=== PATIENT | female | born 1965 | race Two or more races ===

== ENCOUNTER 2024-11-14 16:11 | Inpatient (IN) | payer MEDICAID ==
[~2024-11-14] VITALS: Ht 177.8 cm; Wt 71.5 kg
--- NOTE | 2024-11-14 16:30 | ED.PDOC ---
History of Present Illness HPI Comments 59 year old female presents to the ED via EMS with a chief complaint of generalized weakness onset 1 day. Per EMS, patient was at an urgent care, was told hemoglobin level was 5, 911 was called. Patient is currently experiencing generalized weakness, abdominal pain radiating to back. She was discharged from [facility] 3 days ago with a diagnosis of GI bleed, states she is still experiencing dark stool. PMHx HTN. Denies chest pain, dizziness, shortness of breath, nausea, vomiting, diarrhea, constipation, dysuria, hematuria. No other symptoms or modifying factors present at this time. 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 History Family History Family History: Reviewed,noncontributory to illness, No family hx of Cancer, No family hx of DM, No family hx of Heart karan, No family hx of HTN, No family hx ofKidney karan, No family hx of Liver karan, No family hx of Lung karan, No family hx of Stroke Social History Smoker: Cigarettes Alcohol: Denies ETOH Use Drugs: Denies Drug Use Lives In: Home Constitutional: reports: weakness; denies: chills, diaphoresis, fatigue, fever, malaise, sweats, others EENTM: denies: blurred vision, double vision, ear bleeding, ear discharge, ear drainage, ear pain, ear ringing, eye pain, eye redness, hearing loss, mouth pain, mouth swelling, nasal discharge, nose bleeding, nose congestion, nose pain, photophobia, tearing, throat pain, throat swelling, voice changes, others Respiratory: denies: cough, hemoptysis, orthopnea, SOB at rest, shortness of breath, SOB with excertion, stridor, wheezing, others Cardiovascular: denies: chest pain, dizzy spells, diaphoresis, Dyspnea on exertion, edema, irregular heart beat, left arm pain, lightheadedness, palpitations, PND, syncope, others Gastrointestinal: reports: abdominal pain; denies: abdomen distended, blood streaked bowels, constipated, diarrhea, dysphagia, difficulty swallowing, hematemesis, melena, nausea, poor appetite, poor fluid intake, rectal bleeding, rectal pain, vomiting, others Genitourinary: denies: abnormal vagina bleeding, burning, dyspareunia, dysuria, flank pain, frequency, hematuria, incontinence, pain, , vagina discharge, urgency, others Neurological: reports: weakness; denies: dizziness, fainting, headache, left sided numbness, left sided weakness, numbness, paresthesia, pre-existing deficit, right sided numbness, right sided weakness, seizure, speech problems, tingling, tremors, others Musculoskeletal: reports: back pain; denies: gout, joint pain, joint swelling, muscle pain, muscle stiffness, neck pain, others Integumetry: denies: bruises, change in color, change in hair/nails, dryness, laceration, lesions, lumps, rash, wounds, others Allergic/Immunocompromised: denies: Difficulty Healing, Frequent Infections, Hives, Itching, others Hematologic/Lymphatic: denies: anemia, blood clots, easy bleeding, easy bruising, swollen glands, others Endocrine: denies: excessive hunger, excessive sweating, excessive thirst, excessive urination, flushing, intolerance to cold, intolerance to heat, unexplained weight gain, unexplained weight loss, others Psychiatric: denies: anxiety, bipolar disorder, depression, hopeless, panic disorder, schizophrenia, sleepless, suicidal, others All Other Systems: Reviewed and Negative Physical Exam General Appearance: Moderate Distress, Normal HEENT: Normal ENT Inspection, Pharynx Normal, TMs Normal Neck: Full Range of Motion, Non-Tender, Normal, Normal Inspection Respiratory: Chest Non-Tender, Lungs Clear, No Accessory Muscle Use, No Respiratory Distress, Normal Breath Sounds Cardiovascular: No Edema, No JVD, No Murmur, No Gallop, Normal Peripheral Pulses, Tachycardia Breast Exam: Deferred Gastrointestinal: Diffuse, No Organomegaly, No Pulsatile Mass, Normal Bowel Sounds, Soft Genitalia: Deferred Pelvic: Deferred Rectal: Deferred Extremities: No calf tenderness, Normal capillary refill, Normal inspection, Normal range of motion, Non-tender, No pedal edema Musculoskeletal : Apperance: Normal Neurologic: Alert, supervisor wrapping room II-XII nml as Tested, No Motor Deficits, Normal Affect, Normal Mood, No Sensory Deficits Cerebellar Function: NOT DONE Reflexes: NOT DONE Skin: Dry, Normal Color, Warm Peripheral Pulses: 3+ Radial (R), 3+ Radial (L) Lymphatic: No Adenopathy Was a procedure done? Was a procedure done?: No EKG EKG : Pulse Rate (adult): 111 Cardiac Rhythm: ST Differential Dx Considerations may include: Colitis Electrolyte imbalance X-Ray, Labs, Meds, VS Vital Signs Date Time Temp Pulse Resp B/P (MAP) Pulse Ox O2 Delivery O2 Flow Rate FiO2 11/14/24 17:31 99.0 109 26 141/82 (101) 98 99.0 11/14/24 17:31 109 26 98 Room Air* 0 21 11/14/24 16:32 111 11/14/24 16:25 111 11/14/24 16:22 98.3 118 16 145/91 98 98.3 Current Medications Medications (Trade) Dose Ordered Sig/Ami Route Start Time Stop Time Status Last Admin Sodium Chloride 1,000 ml @ 1,000 mls/hr Q1H ONCE IV 11/14/24 16:30 11/14/24 17:29 DC 11/14/24 17:33 Patient alert. Complaining of abdominal pain. Vitals stable. Answering questions. Establish intravenous access. Was given fluids. Chronic condition. Was given Rocephin. Was given Flagyl. Was given morphine. Was given Zofran. Explained to the patient. Continue to monitor. Time of 1ST Reevaluation: 16:45 Reevaluation 1ST: Unchanged Patient Education/Counseling: Diagnosis, Treatment, Prognosis Family Education/Counseling: No Family Present SEPSIS Sepsis Screen Physician Orders Complete Blood Count (11/14/24 16:26) Urinalysis (11/14/24 16:26) Basic Metabolic Panel (11/14/24 16:26) Ct Ab Pel Wo Con-No Oral Or Iv (11/14/24 16:32) Electrocardigram (11/14/24 16:36) Vital Signs Date Time Temp Pulse Resp B/P (MAP) Pulse Ox O2 Delivery O2 Flow Rate FiO2 11/14/24 17:31 99.0 109 26 141/82 (101) 98 99.0 11/14/24 17:31 109 26 98 Room Air* 0 21 11/14/24 16:32 111 11/14/24 16:25 111 11/14/24 16:22 98.3 118 16 145/91 98 98.3 Medications Medications Dose Ordered Sig/Ami Route Start Time Stop Time Status Last Admin Dose Admin Sodium Chloride 1,000 ml @ 1,000 mls/hr Q1H ONCE IV 11/14/24 16:30 11/14/24 17:29 DC 11/14/24 17:33 Departure 1 Departure Time of Disposition: 17:37 Impression: Primary Impression: Nonspecific colitis Disposition: ADMITTED INPATIENT Admit to: Med Surg Condition: Guarded Critical Care Note Critical Care Time?: No Stability Stability form required: No Heart Score Heart Score: Heart Score Response (Comments) Value History N/A 0 EKG N/A 0 Age N/A 0 Risk Factors N/A 0 Troponin N/A 0 Total 0 I personally scribed for GEOFF IBARRA MD ([email or web address]) on 11/14/24 at 16:30. Electronically submitted by Lupe Christy ([email or web address]). I personally scribed for GEOFF IBARRA MD ([email or web address]) on 11/14/24 at 16:32. Electronically submitted by Lupe Christy ([email or web address]). GEOFF IBARRA MD Nov 14, 2024 16:30
--- NOTE | 2024-11-14 17:24 | DVH ---
Exam: CT CT AB PEL WO CON-NO ORAL OR IV History: gibleed Comparison Study: None TECHNIQUE: Multidetector CT of the abdomen and pelvis without IV contrast. Axial, coronal and sagitta l multiplanar reformats were obtained from the axial data set by the technologist. Radiation Dose Information: CT Dose: CTDI volume is 14.91 mGy. Dose-length product is 676.39 mGy*cm FINDINGS: The lung bases are clear. Partially visualized heart is normal in size. Trace pericardial effusion. Hepatomegaly. Otherwise, liver, spleen, pancreas and adrenal glands unremarkable. Moderate to signif icant distention of the gallbladder with no evidence of wall thickening or cholelithiasis. 0.6 cm nonobstructing right renal lower pole calculus. Otherwise, kidneys, and ureters unremarkable. Urinary bladder is mildly distended and demonstrates mild wall thickening. Uterus and adnexa are unre markable. Mild gaseous distention of the distal esophagus. Stomach is fluid-filled and mildly distended. Mild wall thickening of the distal stomach Small bowel loops are unremarkable. Large amount of fecal mater ial within the ascending colon and transverse colon with small amount of fecal material within the re mainder of the colon. No evidence of intraperitoneal free air. Diffuse mesenteric edema. No evidence of aortic aneurysm. Mild atherosclerotic calcification of the aorta and bilateral iliacs . No significant lymphadenopathy. Mild body wall edema. Grade 1 anterolisthesis of L4 on L5. Multilevel moderate to severe degenerative changes of the lumbar spine. IMPRESSION: Limited noncontrast imaging. Mild wall thickening of the distal stomach which may be due to inadequate distention with mild gastri tis not excluded Mild mesenteric edema. Nonobstructing right renal calculus. Large amount of fecal material within the ascending and transverse colons with small amount of fecal material within the remainder of the colon. Mild body wall edema. Moderate to significant distention of the gallbladder without evidence of wall thickening or cholelit hiasis. Right upper quadrant ultrasound may be considered for further evaluation.
[2024-11-14 17:31] VITALS: PULSE 109; RESP 26; O2SAT 98
[2024-11-14] MEDS: SODIUM CHLORIDE 0.9% 1,000 ML IV ONE (17:33)
[2024-11-14] MEDS: ONDANSETRON HCL 4 MG/2 ML VIAL IV ONE (17:43)
[2024-11-14] MEDS: MORPHINE SULFATE 4 MG/ML SYR/VIAL IV ONE (17:44)
[2024-11-14 17:53] LABS: Nucleated Red Blood Cells % 0.4 %
[2024-11-14 17:55] LABS: Hematocrit 19.5 % (36.0-46.0); Mean Corpuscular Hemoglobin 28.3 pg (28.0-32.0); Mean Corpuscular Volume 86.2 fL (80.0-100.0)
[2024-11-14 18:00] LABS: Anion Gap 6 (5-15); Calcium 8.8 mg/dL (8.7-10.4); Carbon Dioxide 22 mmol/L (20-31); Potassium 3.7 mmol/L (3.5-5.1); Sodium 140 mmol/L (136-145)
[2024-11-14 18:06] LABS: BUN/Creatinine Ratio 19.8 (10.0-20.0); Blood Urea Nitrogen 19 mg/dL (9-23)
[2024-11-14 18:08] LABS: Chloride 112 mmol/L (98-107); Glucose 116 mg/dL (74-106)
--- NOTE | 2024-11-14 18:13 | DVHHP2 ---
Admitting Diagnosis: low hgb History of Present Illness 59 year old female presents to the ED via EMS with a chief complaint of generalized weakness onset 1 day. Per EMS, patient was at an urgent care, was told hemoglobin level was 5, 911 was called. Patient is currently experiencing generalized weakness, abdominal pain radiating to back. She was discharged from [facility] 3 days ago with a diagnosis of GI bleed, states she is still experiencing dark stool. PMHx HTN. Denies chest pain, dizziness, shortness of breath, nausea, vomiting, diarrhea, constipation, dysuria, hematuria. No other symptoms or modifying factors present at this time. 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 History Family History Family History: Reviewed,noncontributory to illness, No family hx of Cancer, No family hx of DM, No family hx of Heart karan, No family hx of HTN, No family hx ofKidney karan, No family hx of Liver karan, No family hx of Lung karan, No family hx of Stroke Social History Smoker: Cigarettes Alcohol: Denies ETOH Use Drugs: Denies Drug Use Lives In: Home Allergies: Coded Allergies: NO KNOWN ALLERGIES (Unverified , 11/14/24) Vital Signs Vital Signs Date Time Temp Pulse Resp B/P (MAP) Pulse Ox O2 Delivery O2 Flow Rate FiO2 11/14/24 18:29 100 18 112/64 11/14/24 17:31 99.0 98 99.0 11/14/24 17:31 Room Air* 0 21 Physical Exam General-59 years old woman, well nourished well developed. No apparent distress HEENT-atraumatic normocephalic Heart-sinus tachycardic Lungs clear to auscultate bilaterally Abdomen soft nontender nondistended Musculoskeletal-no edema cyanosis Neuro-AO x3, no focal deficits SEPSIS Sepsis Screen Date sepsis recognized/suspect: Nov 14, 2024 Time Sepsis recognized/suspect: 1738 Recent Procedure: No On Antibiotic Therapy: No Respiratory Rate >20: No Heart Rate >90: Yes Temp<36 C (96.8 F) or >38.3 C: No SBP <90 or MAP <65 mmHG: No New Acute Mental Status Change: No Is the patient on CPAP, BIPAP,: No Physician Orders Urinalysis (11/14/24 16:26) Ct Ab Pel Wo Con-No Oral Or Iv (11/14/24 16:32) Electrocardigram (11/14/24 16:36) Packedcell-Noactive Bleeding (11/14/24 19:42) Vital Signs .PER UNIT PROTOCOL (11/14/24 19:42) Administer Blood Products UD (11/14/24 19:42) * Gi Dvh Chipping Machine Operator (11/14/24 19:45) Complete Blood Count (11/15/24 05:00) Complete Blood Count (11/16/24 05:00) Complete Blood Count (11/17/24 05:00) Complete Blood Count (11/18/24 05:00) Complete Blood Count (11/19/24 05:00) Comprehensive Metabolic Panel (11/15/24 05:00) Comprehensive Metabolic Panel (11/16/24 05:00) Comprehensive Metabolic Panel (11/17/24 05:00) Comprehensive Metabolic Panel (11/18/24 05:00) Comprehensive Metabolic Panel (11/19/24 05:00) Admit (11/14/24 19:45) Code Status (11/14/24 19:45) Review Orders With Adm.Md (11/14/24 19:45) Encourage Activity As Tolerate (11/14/24 19:45) Regular Diet (11/15/24 Breakfast) Sodium Chloride Lock (Saline Lock Ns) (11/14/24 22:00) Docusate Sodium Capsule (Colace Capsule) (11/14/24 19:45) Acetaminophen Tablet (Tylenol Tablet) (11/14/24 19:45) Notify Md Of Changes From Base (11/14/24 19:45) Advance Directive (11/14/24 19:45) Patient Condition (11/14/24 19:45) Allergies (11/14/24 19:45) Hydrocodone-Acet 5/325mg Tab ([place] 5/32 (11/14/24 19:45) Ondansetron Hcl (Zofran) (11/14/24 19:45) Pantoprazole (Protonix) (11/14/24 22:00) Vital Signs Date Time Temp Pulse Resp B/P (MAP) Pulse Ox O2 Delivery O2 Flow Rate FiO2 11/14/24 18:29 100 18 112/64 11/14/24 17:44 103 16 141/82 11/14/24 17:31 99.0 109 26 141/82 (101) 98 99.0 11/14/24 17:31 109 26 98 Room Air* 0 21 11/14/24 16:32 111 11/14/24 16:25 111 11/14/24 16:22 98.3 118 16 145/91 98 98.3 Laboratory Tests Test 11/14/24 17:31 White Blood Count 9.7 10^3/uL (4.4-10.8) Medications Medications Dose Ordered Sig/Ami Route Start Time Stop Time Status Last Admin Dose Admin Morphine Sulfate 4 mg ONCE ONCE IV 11/14/24 17:45 11/14/24 17:46 DC 11/14/24 17:44 Ondansetron HCl 4 mg ONCE ONCE IV 11/14/24 17:45 11/14/24 17:46 DC 11/14/24 17:43 Sodium Chloride 1,000 ml @ 1,000 mls/hr Q1H ONCE IV 11/14/24 16:30 11/14/24 17:29 DC 11/14/24 17:33 Results Labs Test 11/14/24 17:31 Range/Units White Blood Count 9.7 4.4-10.8 10^3/uL Red Blood Count 2.26 L 4.0-5.20 10^6/uL Hemoglobin 6.4 *L 12.2-16.2 g/dL Hematocrit 19.5 L 36.0-46.0 % Mean Corpuscular Volume 86.2 80.0-100.0 fL Mean Corpuscular Hemoglobin 28.3 28.0-32.0 pg Mean Corpuscular Hemoglobin Concent 32.9 32.0-36.0 g/dL Red Cell Distribution Width 14.8 H 11.8-14.3 % Platelet Count 487 H 140-450 10^3/uL Mean Platelet Volume 8.1 6.9-10.8 fL Neutrophils (%) (Auto) 78.4 37.0-80.0 % Lymphocytes (%) (Auto) 12.5 10.0-50.0 % Monocytes (%) (Auto) 7.6 0.0-12.0 % Eosinophils (%) (Auto) 0.4 0.0-7.0 % Basophils (%) (Auto) 1.1 0.0-2.0 % Neutrophils # (Auto) 7.6 1.6-8.6 10 ^3/uL Lymphocytes # (Auto) 1.2 0.4-5.4 10 ^3/uL Monocytes # (Auto) 0.7 0-1.3 10 ^3/uL Eosinophils # (Auto) 0 0-0.8 10 ^3/uL Basophils # (Auto) 0.1 0-0.2 10 ^3/uL Nucleated Red Blood Cells 0.4 % Sodium Level 140 136-145 mmol/L Potassium Level 3.7 3.5-5.1 mmol/L Chloride Level 112 H 98-107 mmol/L Carbon Dioxide Level 22 20-31 mmol/L Anion Gap 6 5-15 Blood Urea Nitrogen 19 9-23 mg/dL Creatinine 0.96 0.550-1.02 mg/dL Glomerular Filtration Rate Calc 67 >90 mL/min BUN/Creatinine Ratio 19.8 10.0-20.0 Serum Glucose 116 H 74-106 mg/dL Calcium Level 8.8 8.7-10.4 mg/dL Primary Diagnosis Severe anemia requiring blood transfusion Melena likely due to upper GI bleed Plan Melena Hemoglobin less than seven denies taking iron suppl Transfuse 1 unit PRBC PPI for GI prophylaxis Regular diet NPO after midnight IV fluids DVT gi on-call GI bleed Full code SCD for DVT prophylaxis PPI for GI prophylaxis Plan discussed with: Patient Date of Service: Nov 14, 2024 Billing Provider: HENRIQUE PAUL MD Common Visit Codes: [id number] INP/OBS CARE (HIGH) HERNIQUE PAUL MD Nov 14, 2024 18:13
[2024-11-14 18:22] LABS: Hemoglobin 6.4 g/dL (12.2-16.2)
[2024-11-14 19:45] VITALS: RESP 20; O2SAT 97
[2024-11-14] MEDS ORDERED: DOCUSATE SOD 100 MG CAP PO PRN (19:45)
[2024-11-14] MEDS: MORPHINE SULFATE INJ 2 MG/ml SYRG ONE (20:37)
[2024-11-14 21:30] VITALS: BP 133/74; PULSE 95; RESP 22; TEMP 99.1
[2024-11-14 21:55] VITALS: BP 122/65; PULSE 92; RESP 17; TEMP 99.1
[2024-11-14] MEDS: SODIUM CHLOR 0.9% PF (SALINE LOCK) 10ML VIAL/SYR IV SCH (22:00)
[2024-11-14] MEDS: PANTOPRAZOLE 40 MG/10 ML VIAL INJ IV SCH (22:00)
[2024-11-14] MEDS: HYDROcodone-ACET 5/325MG TAB PO PRN (23:36)
[2024-11-14] MEDS: ACETAMINOPHEN 325 MG TAB PO PRN (23:36)
[2024-11-15] VITALS (10 sets, daily range): BP systolic 109–151; BP diastolic 66–91; PULSE 71–109; RESP 18–24; TEMP 97.9–99.5; O2SAT 99–100
[2024-11-15 01:32] LABS: Urine Protein, UAD Negative (Negative)
[2024-11-15] MEDS: ONDANSETRON HCL 4 MG/2 ML VIAL IV PRN (04:14)
[2024-11-15] MEDS: MORPHINE SULFATE INJ 2 MG/ml SYRG IV PRN (04:29)
[2024-11-15] MEDS ORDERED: DOCU-94 PO (05:15)
[2024-11-15] MEDS ORDERED: ALBUAER3 IN (05:15)
[2024-11-15] MEDS ORDERED: ACET-1304 PO (05:15)
[2024-11-15] MEDS ORDERED: METO25TA93 PO (05:15)
[2024-11-15] MEDS ORDERED: ENAL1TAB46 PO (05:15)
[2024-11-15] MEDS ORDERED: CETI-120 PO (05:15)
[2024-11-15] MEDS ORDERED: ATOR20TA50 PO (05:15)
[2024-11-15] MEDS ORDERED: DIPH25CA66 PO (05:15)
[2024-11-15] MEDS ORDERED: IBU600T PO (05:16)
[2024-11-15] MEDS: KETOROLAC TROMETH 30 MG/ML 1ML VIAL IV ONE (05:36)
[2024-11-15 11:04] LABS: Alanine Aminotransferase 19 U/L (7-40); Albumin 4.0 g/dL (3.2-4.8); Anion Gap 8 (5-15); BUN/Creatinine Ratio 17.9 (10.0-20.0); Bilirubin, Total 0.4 mg/dL (0.2-1.0); Blood Urea Nitrogen 14 mg/dL (9-23); Glucose 98 mg/dL (74-106); Potassium 4.4 mmol/L (3.5-5.1); Sodium 142 mmol/L (136-145); Total Protein 5.9 g/dL (5.7-8.2)
[2024-11-15 11:06] LABS: Alkaline Phosphatase 36 U/L (46-116); Calcium 8.6 mg/dL (8.7-10.4); Carbon Dioxide 19 mmol/L (20-31); Chloride 115 mmol/L (98-107)
[2024-11-15] MEDS: POLYETHYLENE GLYCOL 17 GM PWDR PO ONE (11:32)
[2024-11-15] MEDS: HYDROmorphone HCL 2 MG/ML VL/or syr IV ONE (11:33)
[2024-11-15 12:03] LABS: Hematocrit 31.9 % (36.0-46.0); Hemoglobin 9.7 g/dL (12.2-16.2); Mean Corpuscular Hemoglobin 28.9 pg (28.0-32.0); Mean Corpuscular Volume 95.5 fL (80.0-100.0)
--- NOTE | 2024-11-15 12:13 | DVHPN2 ---
Reviewed: Care Plan, H&P, Labs, Medications, Previous Orders, Radiology Changes from previous H/P or p: No Changes Objective Vitals Vital Signs Date Time Temp Pulse Resp B/P (MAP) Pulse Ox O2 Delivery O2 Flow Rate FiO2 11/15/24 11:33 61 17 106/65 11/15/24 09:00 98.6 100 98.6 11/15/24 08:00 Room Air* 0 21 Intake/Output Intake and Output 11/15/24 07:00 Intake Total 1000 ml Balance 1000 ml Intake IV Total 1000 ml Medications Current Medications Medications Dose Ordered Sig/Ami Route Start Time Stop Time Status Last Admin Dose Admin Sodium Chloride 10 ml Q8HR IV 11/14/24 22:00 11/15/24 05:38 10 ML Docusate Sodium 100 mg BIDPRN PRN PO 11/14/24 19:45 Acetaminophen 650 mg Q6HP PRN PO 11/14/24 19:45 11/14/24 23:36 650 MG Acetaminophen/ Hydrocodone Bitart 1 tab Q4HP PRN PO 11/14/24 19:45 11/15/24 03:36 1 TAB Ondansetron HCl 4 mg Q4HP PRN IV 11/14/24 19:45 11/15/24 04:14 4 MG Pantoprazole Sodium 40 mg BID IV 11/14/24 22:00 11/15/24 09:23 40 MG Morphine Sulfate 2 mg Q4HPRN PRN IV 11/14/24 20:30 11/15/24 08:17 2 MG Laboratory Results Laboratory Tests 11/15/24 10:25 Chemistry Test 11/14/24 17:31 11/15/24 10:25 Calcium Level 8.8 mg/dL (8.7-10.4) 8.6 mg/dL (8.7-10.4) L Albumin 4.0 g/dL (3.2-4.8) Total Protein 5.9 g/dL (5.7-8.2) LFT Test 11/15/24 10:25 Alanine Aminotransferase (ALT) 19 U/L (7-40) Alkaline Phosphatase 36 U/L (46-116) L Aspartate Amino Transferase (AST) 30 U/L (13-40) Total Bilirubin 0.4 mg/dL (0.2-1.0) Urinalysis Test 11/15/24 00:00 Urine Color Yellow (Yellow) Urine Clarity Clear (Clear) Urine pH 5.5 (5.0-9.0) Urine Specific [place] 1.026 (1.001-1.035) Urine Protein Negative (Negative) Urine Ketones Negative (Negative) Urine Blood Negative /uL (Negative) Urine Nitrite Negative (Negative) Urine Bilirubin Negative (Negative) Urine Urobilinogen Normal mg/dL (Negative) Urine Leukocyte Esterase Negative /uL (Negative) Urine Glucose Normal mg/dL (Normal) Labs and/or images reviewed: Labs reviewed by me, Image(s) reviewed by me Assessment/Plan Assessment/Plan Acute generalized weakness secondary to severe anemia Acute symptomatic anemia hemoglobin 6.1 improved to 9.7 after 1 unit RBC transfusion consult for GI Dr. Deya Anderson Hypertension Time 45 minutes Plan discussed with: Patient Date of Service: Nov 15, 2024 Billing Provider: DEN VALE MD Common Visit Codes: [id number] INP/OBS CARE(HIGH) DEN VALE MD Nov 15, 2024 12:13
--- NOTE | 2024-11-15 13:02 | DVHINCON2 ---
Date of service: Nov 15, 2024 Referring Physician Mati Vargas Reason for Consultation Anemia and abdominal pain History of Present Illness 59 year old female presents to the ED via EMS with a chief complaint of generalized weakness onset 1 day. Per EMS, patient was at an urgent care, was told hemoglobin level was 5, 911 was called. Patient is currently experiencing generalized weakness, abdominal pain radiating to back. She was [place] [facility] [place] with a diagnosis of GI bleed, states she is still experiencing dark stool. PMHx HTN. Denies chest pain, dizziness, shortness of breath, nausea, vomiting, diarrhea, constipation, dysuria, hematuria. No other symptoms or modifying factors present at this time. Patient was seen at bedside moaning and groaning because of chronic pain issues. She also has not had a bowel movement for 2-3 days. He believes the patient may have had previous pain medicine seeking behavior She denied any recent endoscopy or colonoscopy. Patient stated she had these done about five years ago at the [facility] On admission her hemoglobin was 6.4, after 1 unit PRBC repeat hemoglobin is at 9.1. There was no active GI bleeding reported today Past Medical History PAST MEDICAL HISTORY: HTN Past Surgical History Surgical History: Family History: Cardiovascular disease G8 MOTHER (HEART ATTACK), Allergies: Coded Allergies: NO KNOWN ALLERGIES (Unverified , 11/14/24) Home Meds Reported Medications Ibuprofen Micronized (MOTRIN TABLET) 600 Mg Tb, 600 MG PO BID, #40 TAB *Black box warning-NSAIDS can increase risk of NV & hypertension, GI irritation, ulceration, bleed, perferation. Do not use post cardiac surgery. Use short duration/lowest effective dose. 11/15/24 Acetaminophen (Tylenol Extra Strength) 500 Mg Tab, 500 MG PO, TAB 11/15/24 Cetirizine HCl (Cetirizine Hydrochloride) 10 Mg Tab, 10 MG PO 3XD, TAB 11/15/24 Diphenhydramine Hcl (Benadryl Allergy) 25 Mg Cap, 1 CAP PO QPM, #30 CAP 1 Refill 11/15/24 Albuterol Sulfate (VENTOLIN MDI) 90 Mcg Ih, 90 MCG IN, INH 11/15/24 Atorvastatin Calcium (ATORVASTATIN CALCIUM) 20 Mg Tab, 1 TAB PO DAILY, #30 TAB 5 Refills 11/15/24 Docusate Sodium (Colace) 100 Mg Cap, 1 CAP PO TID, #30 CAP 11/15/24 Metoprolol Succinate (Metoprolol Succinate Er) 25 Mg Tab, 1 TAB PO DAILY, #30 TAB 5 Refills 11/15/24 Enalapril Maleate (VASOTEC TABLET) 10 Mg Tb, 1 TAB PO DAILY, #30 TAB 5 Refills 11/15/24 Current Medications Current Medications Medications (Trade) Dose Ordered Sig/Ami Route PRN Reason Start Time Stop Time Status Last Admin Sodium Chloride (Saline Lock Ns) 10 ml Q8HR IV 11/14/24 22:00 11/15/24 05:38 Docusate Sodium (Colace Capsule) 100 mg BIDPRN PRN PO FOR CONSTIPATION 11/14/24 19:45 Acetaminophen (Tylenol Tablet) 650 mg Q6HP PRN PO PAIN SCALE 1-3 OR TEMP>100.4 11/14/24 19:45 11/14/24 23:36 Acetaminophen/ Hydrocodone Bitart ([place] 5/325MG Tab) 1 tab Q4HP PRN PO MODERATE PAIN (4-6 PAIN SCALE) 11/14/24 19:45 11/15/24 03:36 Ondansetron HCl (Zofran) 4 mg Q4HP PRN IV NAUSEA / VOMITING 11/14/24 19:45 11/15/24 04:14 Pantoprazole Sodium (Protonix) 40 mg BID IV 11/14/24 22:00 11/15/24 09:23 Morphine Sulfate 2 mg Q4HPRN PRN IV MODERATE PAIN (4-6 PAIN SCALE) 11/14/24 20:30 11/15/24 08:17 Hydromorphone HCl (Dilaudid Injection) 0.5 mg Q6HP PRN IV SEVERE PAIN (7-10 PAIN SCALE) 11/15/24 12:30 Vital Signs Vital Signs Date Time Temp Pulse Resp B/P (MAP) Pulse Ox O2 Delivery O2 Flow Rate FiO2 11/15/24 11:33 61 17 106/65 11/15/24 09:00 98.6 100 98.6 11/15/24 08:00 Room Air* 0 21 Physical Exam General-59 years old woman, well nourished well developed. No apparent distress HEENT-atraumatic normocephalic Heart-sinus tachycardic Lungs clear to auscultate bilaterally Abdomen soft nontender nondistended Musculoskeletal-no edema cyanosis Neuro-AO x3, no focal deficits Labs/Diagnostic Data Labs Test 11/15/24 10:25 11/15/24 00:00 11/14/24 17:31 Range/Units White Blood Count 3.3 #L 4.4-10.8 10^3/uL Red Blood Count 3.34 L 4.0-5.20 10^6/uL Hemoglobin 9.7 #L 12.2-16.2 g/dL Hematocrit 31.9 #L 36.0-46.0 % Mean Corpuscular Volume 95.5 # 80.0-100.0 fL Mean Corpuscular Hemoglobin 28.9 28.0-32.0 pg Mean Corpuscular Hemoglobin Concent 30.3 L 32.0-36.0 g/dL Red Cell Distribution Width 15.9 H 11.8-14.3 % Platelet Count 369 140-450 10^3/uL Mean Platelet Volume 8.1 6.9-10.8 fL Neutrophils (%) (Auto) 37.0-80.0 % Lymphocytes (%) (Auto) 10.0-50.0 % Monocytes (%) (Auto) 0.0-12.0 % Basophils (%) (Auto) 0.0-2.0 % Neutrophils # (Auto) 1.6-8.6 10 ^3/uL Lymphocytes # (Auto) 0.4-5.4 10 ^3/uL Monocytes # (Auto) 0-1.3 10 ^3/uL Sodium Level 142 136-145 mmol/L Potassium Level 4.4 3.5-5.1 mmol/L Chloride Level 115 H 98-107 mmol/L Carbon Dioxide Level 19 L 20-31 mmol/L Anion Gap 8 5-15 Blood Urea Nitrogen 14 9-23 mg/dL Creatinine 0.78 0.550-1.02 mg/dL Glomerular Filtration Rate Calc 86 >90 mL/min BUN/Creatinine Ratio 17.9 10.0-20.0 Serum Glucose 98 74-106 mg/dL Calcium Level 8.6 L 8.7-10.4 mg/dL Total Bilirubin 0.4 0.2-1.0 mg/dL Aspartate Amino Transferase (AST) 30 13-40 U/L Alanine Aminotransferase (ALT) 19 7-40 U/L Alkaline Phosphatase 36 L 46-116 U/L Total Protein 5.9 5.7-8.2 g/dL Albumin 4.0 3.2-4.8 g/dL Urine Color Yellow Yellow Urine Clarity Clear Clear Urine pH 5.5 5.0-9.0 Urine Specific [place] 1.026 1.001-1.035 Urine Protein Negative Negative Urine Ketones Negative Negative Urine Blood Negative Negative /uL Urine Nitrite Negative Negative Urine Bilirubin Negative Negative Urine Urobilinogen Normal Negative mg/dL Urine Leukocyte Esterase Negative Negative /uL Urine Glucose Normal Normal mg/dL Eosinophils (%) (Auto) 0.4 0.0-7.0 % Eosinophils # (Auto) 0 0-0.8 10 ^3/uL Basophils # (Auto) 0.1 0-0.2 10 ^3/uL Nucleated Red Blood Cells 0.4 % CT SCAN ABD PELVIS IMPRESSION: Limited noncontrast imaging. Mild wall thickening of the distal stomach which may be due to inadequate distention with mild gastritis not excluded Mild mesenteric edema. Nonobstructing right renal calculus. Large amount of fecal material within the ascending and transverse colons with small amount of fecal material within the remainder of the colon. Mild body wall edema. Moderate to significant distention of the gallbladder without evidence of wall thickening or cholelithiasis. Right upper quadrant ultrasound may be considered for further evaluation. Problems(with codes): (1) Anemia (2) Constipation (3) Abdominal pain (4) Nonspecific colitis Plan/Recommendation Plan Patient will be started on clear liquid diet advance to full liquid Bentyl 20 mg p.o. twice a day as needed for abdominal pain MiraLax 17 g p.o. daily Colace 100 mg p.o. twice a day Protonix 40 mg p.o. twice a day Pain control as per hospitalist, patient was given one dose of IV Dilaudid Right upper quadrant ultrasound ; HIDA scan if pain persists Possible endoscopy on 11/17/2024 and elective colonoscopy to follow Review records from [facility] Plan discussed with: Patient, Other (Nurse and DR Coleman) ROMIE NICOLE MD Nov 15, 2024 13:02
[2024-11-15 13:13] LABS: Total Cells Counted 100.0 (100)
[2024-11-15] MEDS: DICYCLOMINE HCL 10 MG CAP PO ONE (13:52)
[2024-11-15] MEDS: HYDROmorphone HCL 2 MG/ML VL/or syr IV PRN (20:03)
[2024-11-15] MEDS: DOCUSATE SOD 100 MG CAP PO SCH (21:54)
[2024-11-16] VITALS (8 sets, daily range): BP systolic 101–125; BP diastolic 56–82; PULSE 106–118; RESP 15–20; TEMP 98.2–99; O2SAT 97–100
[2024-11-16 04:42] LABS: Mean Corpuscular Hemoglobin 29.0 pg (28.0-32.0); Nucleated Red Blood Cells % 0.3 %
[2024-11-16 04:45] LABS: Hematocrit 28.8 % (36.0-46.0); Hemoglobin 9.4 g/dL (12.2-16.2); Mean Corpuscular Volume 89.0 fL (80.0-100.0)
[2024-11-16 05:27] LABS: Alanine Aminotransferase 16 U/L (7-40); Albumin 4.0 g/dL (3.2-4.8); Anion Gap 10 (5-15); BUN/Creatinine Ratio 13.9 (10.0-20.0); Blood Urea Nitrogen 11 mg/dL (9-23); Calcium 8.9 mg/dL (8.7-10.4); Glucose 84 mg/dL (74-106); Potassium 4.3 mmol/L (3.5-5.1); Sodium 138 mmol/L (136-145); Total Protein 6.1 g/dL (5.7-8.2)
[2024-11-16 05:28] LABS: Bilirubin, Total 0.4 mg/dL (0.2-1.0)
[2024-11-16 05:32] LABS: Alkaline Phosphatase 36 U/L (46-116); Carbon Dioxide 18 mmol/L (20-31); Chloride 110 mmol/L (98-107)
[2024-11-16] MEDS: POLYETHYLENE GLYCOL 17 GM PWDR PO SCH (09:07)
--- NOTE | 2024-11-16 10:34 | DVHPN2 ---
Reviewed: Care Plan, H&P, Labs, Medications, Previous Orders, Radiology Changes from previous H/P or p: No Changes Objective Vitals Vital Signs Date Time Temp Pulse Resp B/P (MAP) Pulse Ox O2 Delivery O2 Flow Rate FiO2 11/16/24 07:30 97.8 11/16/24 05:00 114 19 125/82 (96) 100 11/15/24 20:00 Room Air* 0 21 Intake/Output Intake and Output 11/16/24 07:00 Intake Total 1460 ml Balance 1460 ml Intake Oral 1460 ml # Voids 3 Medications Current Medications Medications Dose Ordered Sig/Ami Route Start Time Stop Time Status Last Admin Dose Admin Sodium Chloride 10 ml Q8HR IV 11/14/24 22:00 11/16/24 09:06 10 ML Acetaminophen 650 mg Q6HP PRN PO 11/14/24 19:45 11/14/24 23:36 650 MG Acetaminophen/ Hydrocodone Bitart 1 tab Q4HP PRN PO 11/14/24 19:45 11/16/24 09:08 1 TAB Ondansetron HCl 4 mg Q4HP PRN IV 11/14/24 19:45 11/15/24 04:14 4 MG Pantoprazole Sodium 40 mg BID IV 11/14/24 22:00 11/16/24 09:06 40 MG Morphine Sulfate 2 mg Q4HPRN PRN IV 11/14/24 20:30 11/15/24 08:17 2 MG Hydromorphone HCl 0.5 mg Q6HP PRN IV 11/15/24 12:30 11/15/24 20:03 0.5 MG Docusate Sodium 100 mg BIDPRN PO 11/15/24 22:00 11/16/24 09:07 100 MG Polyethylene Glycol 17 gm DAILY PO 11/16/24 10:00 11/16/24 09:07 17 GM Laboratory Results Laboratory Tests 11/16/24 03:58 Chemistry Test 11/16/24 03:58 Albumin 4.0 g/dL (3.2-4.8) Calcium Level 8.9 mg/dL (8.7-10.4) Total Protein 6.1 g/dL (5.7-8.2) LFT Test 11/16/24 03:58 Alanine Aminotransferase (ALT) 16 U/L (7-40) Alkaline Phosphatase 36 U/L (46-116) L Aspartate Amino Transferase (AST) 24 U/L (13-40) Total Bilirubin 0.4 mg/dL (0.2-1.0) Urinalysis Test 11/15/24 00:00 Urine Color Yellow (Yellow) Urine Clarity Clear (Clear) Urine pH 5.5 (5.0-9.0) Urine Specific [place] 1.026 (1.001-1.035) Urine Protein Negative (Negative) Urine Ketones Negative (Negative) Urine Blood Negative /uL (Negative) Urine Nitrite Negative (Negative) Urine Bilirubin Negative (Negative) Urine Urobilinogen Normal mg/dL (Negative) Urine Leukocyte Esterase Negative /uL (Negative) Urine Glucose Normal mg/dL (Normal) Labs and/or images reviewed: Labs reviewed by me, Image(s) reviewed by me Assessment/Plan Assessment/Plan Acute generalized weakness secondary to severe anemia Acute symptomatic anemia hemoglobin 6.1 improved to 9.7 after 1 unit RBC transfusion consult for GI Dr. Deya Anderson Hypertension Nonspecific colitis and constipation seen by GI Dr. Deya Anderson Time 45 minutes Patient getting EGD Sunday Plan discussed with: Patient My Orders Orders - DEN VALE MD Procedure Category Date Status Time * [facility] [employer] [employer] Consultant CONS 11/15/24 Transmitted 12:10 Hydromorphone PHA 11/15/24 In Process Injection (Dilaudid 12:30 Date of Service: Nov 16, 2024 Billing Provider: DEN VALE MD Common Visit Codes: [id number] INP/OBS CARE(HIGH) DEN VALE MD Nov 16, 2024 10:34
--- NOTE | 2024-11-16 16:12 | DVHPN2 ---
Progress Note - Dictate Date Seen: Nov 16, 2024 Medical Necessity Reason Pt with a Central, PICC or Fol: No Subjective No new complaints Abdominal pain has improved Records reviewed from recent admission to [facility] Her hemoglobin there was 7.2 and stools were Hemoccult positive Patient had a history of ibuprofen use and heavy smoking No procedures were performed Hemoglobin stable at 9.4 S/P 1 unit PRBC vital signs Vital Sign Date Time Temp Pulse Resp B/P (MAP) Pulse Ox O2 Delivery O2 Flow Rate FiO2 11/16/24 13:00 98.3 106 20 101/56 (71) 97 98.3 11/16/24 08:00 Room Air* 0 21 Total Intake and Output 11/15/24 11/15/24 11/16/24 15:00 23:00 07:00 Intake Total 660 ml 800 ml Balance 660 ml 800 ml medications Current Medications Medications Dose Ordered Sig/Ami Route Start Time Stop Time Status Last Admin Dose Admin Sodium Chloride 10 ml Q8HR IV 11/14/24 22:00 11/16/24 09:06 10 ML Acetaminophen 650 mg Q6HP PRN PO 11/14/24 19:45 11/14/24 23:36 650 MG Acetaminophen/ Hydrocodone Bitart 1 tab Q4HP PRN PO 11/14/24 19:45 11/16/24 09:08 1 TAB Ondansetron HCl 4 mg Q4HP PRN IV 11/14/24 19:45 11/15/24 04:14 4 MG Pantoprazole Sodium 40 mg BID IV 11/14/24 22:00 11/16/24 09:06 40 MG Morphine Sulfate 2 mg Q4HPRN PRN IV 11/14/24 20:30 11/15/24 08:17 2 MG Hydromorphone HCl 0.5 mg Q6HP PRN IV 11/15/24 12:30 11/15/24 20:03 0.5 MG Docusate Sodium 100 mg BIDPRN PO 11/15/24 22:00 11/16/24 09:07 100 MG Polyethylene Glycol 17 gm DAILY PO 11/16/24 10:00 11/16/24 09:07 17 GM objective General-59 years old woman, well nourished well developed. No apparent distress HEENT-atraumatic normocephalic Heart-sinus tachycardic Lungs clear to auscultate bilaterally Abdomen soft nontender nondistended Musculoskeletal-no edema cyanosis Neuro-AO x3, no focal deficits laboratory and microbiology Laboratory Tests 11/16/24 03:58 Test 11/16/24 03:58 Range/Units Serum Glucose 84 74-106 mg/dL Problems(with codes): (1) Abdominal pain (2) Anemia (3) Constipation Prognosis Plan Continue Protonix and Carafate Bentyl as needed for abdominal pain NPO after midnight Patient will be scheduled for an endoscopy on 11/17/2024 Dietary Evaluation Review Comments: 1) Encourage optimal PO intake 2) Advance to cardiac diet when medically feasible 3) Follow-up with gastroenterology and cardiology 4) Continue to monitor I&O, labs, and skin integrity Expected Outcomes/Goals: 1) appetite and labs to improve 2) diet to advance 3) f/u in 3-5 days Plan discussed with: Patient ROMIE NICOLE MD Nov 16, 2024 16:12
[2024-11-16] MEDS: FLEET ENEMA(ADULT) 135 ML PR ONE (21:47)
[2024-11-17] VITALS (8 sets, daily range): BP systolic 101–122; BP diastolic 47–82; PULSE 98–120; RESP 15–18; TEMP 97.5–98.4; O2SAT 94–100
[2024-11-17 06:56] LABS: Hemoglobin 7.3 g/dL (12.2-16.2)
[2024-11-17 06:58] LABS: Hematocrit 21.9 % (36.0-46.0); Mean Corpuscular Hemoglobin 29.3 pg (28.0-32.0); Mean Corpuscular Volume 87.2 fL (80.0-100.0); Nucleated Red Blood Cells % 0.2 %
[2024-11-17 07:09] LABS: Alanine Aminotransferase 15 U/L (7-40); Albumin 3.5 g/dL (3.2-4.8); Alkaline Phosphatase 49 U/L (46-116); Anion Gap 9 (5-15); BUN/Creatinine Ratio 22.1 (10.0-20.0); Blood Urea Nitrogen 15 mg/dL (9-23); Carbon Dioxide 20 mmol/L (20-31); Glucose 80 mg/dL (74-106); Potassium 4.1 mmol/L (3.5-5.1); Sodium 138 mmol/L (136-145)
[2024-11-17 07:13] LABS: Bilirubin, Total 0.3 mg/dL (0.2-1.0); Calcium 8.5 mg/dL (8.7-10.4); Chloride 109 mmol/L (98-107); Total Protein 5.5 g/dL (5.7-8.2)
--- NOTE | 2024-11-17 07:44 | ECG ---
[facility] Test Date: 2024-11-14 Test Time: 16:25:41 Pat Name: CLAUDIA CAPUTO Department: [facility] ED Patient ID: [id number] Room: [address] [place] [address] 1 Gender: F Freelance Recruiter: CARLOS : 1965 Requested By: GEOFF IBARRA Order Number: [id number] Reading MD: Juan Edouard Measurements Intervals [place] Rate: 111 P: 75 RI: 166 QRS: 52 QRSD: 73 T: 63 QT: 301 QTc: 409 Interpretive Statements Sinus tachycardia Borderline T abnormalities, lateral leads Baseline wander in lead(s) I,III,aVL,aVF Electronically Signed On 11-17-2024 18:16:29 PDT by Juan Edouard Please click the below link to view image of tracing.
[2024-11-17] MEDS ORDERED: SODIUM CHLORIDE LOCK 10 ML ONE (08:41)
--- NOTE | 2024-11-17 11:27 | DVHPN2 ---
Reviewed: Care Plan, H&P, Labs, Medications, Previous Orders, Radiology Changes from previous H/P or p: No Changes Objective Vitals Vital Signs Date Time Temp Pulse Resp B/P (MAP) Pulse Ox O2 Delivery O2 Flow Rate FiO2 11/17/24 08:49 97.7 104 18 113/63 (80) 100 97.7 11/17/24 08:00 Room Air* 0 21 Intake/Output Intake and Output 11/17/24 07:00 Intake Total 740 ml Balance 740 ml Intake Oral 740 ml # Voids 5 # Bowel Movements 1 Medications Current Medications Medications Dose Ordered Sig/Ami Route Start Time Stop Time Status Last Admin Dose Admin Sodium Chloride 10 ml Q8HR IV 11/14/24 22:00 11/17/24 09:20 10 ML Acetaminophen 650 mg Q6HP PRN PO 11/14/24 19:45 11/14/24 23:36 650 MG Acetaminophen/ Hydrocodone Bitart 1 tab Q4HP PRN PO 11/14/24 19:45 11/16/24 09:08 1 TAB Ondansetron HCl 4 mg Q4HP PRN IV 11/14/24 19:45 11/16/24 17:57 4 MG Pantoprazole Sodium 40 mg BID IV 11/14/24 22:00 11/17/24 09:19 40 MG Morphine Sulfate 2 mg Q4HPRN PRN IV 11/14/24 20:30 11/16/24 17:58 2 MG Hydromorphone HCl 0.5 mg Q6HP PRN IV 11/15/24 12:30 11/15/24 20:03 0.5 MG Docusate Sodium 100 mg BIDPRN PO 11/15/24 22:00 11/16/24 21:47 100 MG Polyethylene Glycol 17 gm DAILY PO 11/16/24 10:00 11/17/24 09:19 17 GM Laboratory Results Laboratory Tests 11/17/24 06:14 Chemistry Test 11/17/24 06:14 Albumin 3.5 g/dL (3.2-4.8) Calcium Level 8.5 mg/dL (8.7-10.4) L Total Protein 5.5 g/dL (5.7-8.2) L LFT Test 11/17/24 06:14 Alanine Aminotransferase (ALT) 15 U/L (7-40) Alkaline Phosphatase 49 U/L (46-116) Aspartate Amino Transferase (AST) 28 U/L (13-40) Total Bilirubin 0.3 mg/dL (0.2-1.0) Urinalysis Test 11/15/24 00:00 Urine Color Yellow (Yellow) Urine Clarity Clear (Clear) Urine pH 5.5 (5.0-9.0) Urine Specific [place] 1.026 (1.001-1.035) Urine Protein Negative (Negative) Urine Ketones Negative (Negative) Urine Blood Negative /uL (Negative) Urine Nitrite Negative (Negative) Urine Bilirubin Negative (Negative) Urine Urobilinogen Normal mg/dL (Negative) Urine Leukocyte Esterase Negative /uL (Negative) Urine Glucose Normal mg/dL (Normal) Labs and/or images reviewed: Labs reviewed by me, Image(s) reviewed by me Assessment/Plan Assessment/Plan Acute generalized weakness secondary to severe anemia Acute symptomatic anemia hemoglobin 6.1 improved to 9.7 after 1 unit RBC transfusion consult for GI Dr. Deya Anderson Hypertension Nonspecific colitis and constipation seen by GI Dr. Deya Anderson Time 45 minutes Patient getting EGD Sunday Plan discussed with: Patient Date of Service: Nov 17, 2024 Billing Provider: DEN VALE MD Common Visit Codes: [id number] INP/OBS CARE(HIGH) DEN VALE MD Nov 17, 2024 11:27
[2024-11-17] MEDS: LIDOCAINE VISCOUS 2% 15ML UD ONE (13:01)
[2024-11-17] MEDS: MIDAZOLAM HCL 5 MG/ML-1ML VIAL ONE (13:01)
[2024-11-17] MEDS: diphenhdrAMINE HCL 50 MG/1 ML VL ONE (13:01)
[2024-11-17] MEDS: fentaNYL CITRATE 100 MCG/2 ML VL ONE (13:01)
--- NOTE | 2024-11-17 14:01 | DVHOP2 ---
Operative Report DATE OF OPERATION: 11/17/24 PROCEDURE: Upper Endoscopy with biopsy. PREOPERATIVE INDICATION: The patient is a 59 -year-old female undergoing endoscopy for epigastric pain nausea vomiting POSTOPERATIVE DIAGNOSES: 1. Patient had a 2 cm deep pre-pyloric antral gastric ulcer at the 9 o'clock position Bharath classification C with no visible vessel or bleeding 2. Mild gastroduodenitis with duodenal erosions; no fresh or old blood in the GI tract 3. A 2 cm sliding-type hiatal hernia with no significant erosive esophagitis otherwise normal examination up to the 2nd part of the duodenal PROCEDURE PERFORMED BY: Romie Anderson GI NURSE: Lamberto SCOPE: Olympus videoendoscope. ASA CLASS: 3 PREOPERATIVE MEDICATIONS: Versed 5 mg, Fentanyl 100 mcg, Benadryl 50 mg I administered moderate sedation throughout this _8_ minutes procedure. An independent trained observer pushed medications at my direction, and monitored the patient's level of consciousness and physiological status throughout. PROCEDURE IN DETAIL: After obtaining an informed consent, the patient was placed on left lateral decubitus position. The patient was then sedated with the above medications. A bite block was placed between her teeth. The endoscope was then passed through the oropharynx, into the esophagus, and through the stomach and pylorus up to the second and third part of the duodenum. The endoscope was then withdrawn. The 2nd and 3rd part of the duodenal showed duodenitis with some superficial linear erosions. The duodenal bulb showed mild duodenitis Duodenal biopsies were obtained. The pre-pyloric area and antrum showed gastritis. There was a 2 cm deep pre-pyloric antral gastric ulcer. This was Bharath classification C at the 9 o'clock position with no visible vessel or active bleeding. Gastric biopsies were obtained from the antrum and the edges of the ulcer On retroflexion the fundus cardia and angularis were normal. There was no fresh or old blood in the upper GI tract. The endoscope was then withdrawn into distal esophagus where she had a 2 cm sliding-type hiatal hernia with no significant erosive esophagitis The remaining distal and proximal esophagus and oropharynx were unremarkable. The patient tolerated the procedure well without difficulty. COMPLICATIONS : None SPECIMENS: Duodenal biopsies Gastric biopsies DISPOSITION: Transfer back to the floor Stable PLAN: 1. Await for biopsy result 2. Will place pt on Protonix 40 mg bid 3. Carafate 1 g p.o. 4 times a day 4. Zofran as needed for nausea vomiting 5. DC aspirin NSAIDs smoking alcohol 6. Resume GI soft diet advance as tolerated 7. Outpatient follow up with me in 4-6 weeks to review results and discuss further management ROMIE ANDERSON MD Nov 17, 2024 14:01
[2024-11-17] MEDS: SUCRALFATE 1 GM/10 ML ORAL SUSP PO SCH (17:24)
[2024-11-18] VITALS (10 sets, daily range): BP systolic 108–141; BP diastolic 65–86; PULSE 88–105; RESP 16–20; TEMP 98–98.9; O2SAT 96–100
[2024-11-18 05:54] LABS: Hematocrit 20.3 % (36.0-46.0); Mean Corpuscular Hemoglobin 29.4 pg (28.0-32.0); Mean Corpuscular Volume 89.2 fL (80.0-100.0); Nucleated Red Blood Cells % 0.2 %
[2024-11-18 06:00] LABS: Hemoglobin 6.7 g/dL (12.2-16.2)
[2024-11-18 06:09] LABS: Alanine Aminotransferase 22 U/L (7-40); Albumin 3.3 g/dL (3.2-4.8); Alkaline Phosphatase 52 U/L (46-116); Anion Gap 8 (5-15); BUN/Creatinine Ratio 12.3 (10.0-20.0); Carbon Dioxide 22 mmol/L (20-31); Glucose 74 mg/dL (74-106); Potassium 4.3 mmol/L (3.5-5.1); Sodium 141 mmol/L (136-145)
[2024-11-18 06:15] LABS: Bilirubin, Total 0.3 mg/dL (0.2-1.0); Blood Urea Nitrogen 8 mg/dL (9-23); Calcium 8.2 mg/dL (8.7-10.4); Chloride 111 mmol/L (98-107); Total Protein 5.3 g/dL (5.7-8.2)
--- NOTE | 2024-11-18 09:55 | DVHPN2 ---
Reviewed: Care Plan, H&P, Labs, Medications, Previous Orders, Radiology Changes from previous H/P or p: No Changes Objective Vitals Vital Signs Date Time Temp Pulse Resp B/P (MAP) Pulse Ox O2 Delivery O2 Flow Rate FiO2 11/18/24 05:00 98.0 104 18 121/78 (92) 96 98.0 11/17/24 20:00 Room Air* 0 21 Intake/Output Intake and Output 11/18/24 07:00 Intake Total 510 ml Balance 510 ml Intake Oral 500 ml IV Total 10 ml # Voids 6 # Bowel Movements 5 Medications Current Medications Medications Dose Ordered Sig/Ami Route Start Time Stop Time Status Last Admin Dose Admin Sodium Chloride 10 ml Q8HR IV 11/14/24 22:00 11/18/24 05:34 10 ML Acetaminophen 650 mg Q6HP PRN PO 11/14/24 19:45 11/14/24 23:36 650 MG Ondansetron HCl 4 mg Q4HP PRN IV 11/14/24 19:45 11/16/24 17:57 4 MG Pantoprazole Sodium 40 mg BID IV 11/14/24 22:00 11/17/24 23:03 40 MG Morphine Sulfate 2 mg Q4HPRN PRN IV 11/14/24 20:30 11/16/24 17:58 2 MG Hydromorphone HCl 0.5 mg Q6HP PRN IV 11/15/24 12:30 11/17/24 23:46 0.5 MG Docusate Sodium 100 mg BIDPRN PO 11/15/24 22:00 11/16/24 21:47 100 MG Polyethylene Glycol 17 gm DAILY PO 11/16/24 10:00 11/17/24 09:19 17 GM Sucralfate 1 gm QID@0600,1130,1700,2200 PO 11/17/24 17:00 11/18/24 05:34 1 GM Laboratory Results Laboratory Tests 11/18/24 05:11 Chemistry Test 11/18/24 05:11 Albumin 3.3 g/dL (3.2-4.8) Calcium Level 8.2 mg/dL (8.7-10.4) L Total Protein 5.3 g/dL (5.7-8.2) L LFT Test 11/18/24 05:11 Alanine Aminotransferase (ALT) 22 U/L (7-40) Alkaline Phosphatase 52 U/L (46-116) Aspartate Amino Transferase (AST) 45 U/L (13-40) H Total Bilirubin 0.3 mg/dL (0.2-1.0) Urinalysis Test 11/15/24 00:00 Urine Color Yellow (Yellow) Urine Clarity Clear (Clear) Urine pH 5.5 (5.0-9.0) Urine Specific [place] 1.026 (1.001-1.035) Urine Protein Negative (Negative) Urine Ketones Negative (Negative) Urine Blood Negative /uL (Negative) Urine Nitrite Negative (Negative) Urine Bilirubin Negative (Negative) Urine Urobilinogen Normal mg/dL (Negative) Urine Leukocyte Esterase Negative /uL (Negative) Urine Glucose Normal mg/dL (Normal) Labs and/or images reviewed: Labs reviewed by me, Image(s) reviewed by me Assessment/Plan Assessment/Plan Acute generalized weakness secondary to severe anemia Acute symptomatic anemia hemoglobin 6.1 improved to 9.7 after 1 unit RBC transfusion , down to 6.7, one more unit of RBC transfusion ordered today EGD by Dr. Deya Anderson on 11/17/2024: 1. Patient had a 2 cm deep pre-pyloric antral gastric ulcer at the 9 o'clock position Bharath classification C with no visible vessel or bleeding 2. Mild gastroduodenitis with duodenal erosions; no fresh or old blood in the GI tract Hypertension Nonspecific colitis and constipation seen by GI Dr. Deya Anderson Time 45 minutes Plan discussed with: Patient My Orders Orders - DEN VALE MD Procedure Category Date Status Time Type And Screen BBK 11/18/24 In Process 07:45 Date of Service: Nov 18, 2024 Billing Provider: DEN VALE MD Common Visit Codes: [id number] INP/OBS CARE(HIGH) DEN VALE MD Nov 18, 2024 09:55
--- NOTE | 2024-11-18 21:01 | DVHPN2 ---
Progress Note - Dictate Date Seen: Nov 18, 2024 Medical Necessity Reason Pt with a Central, PICC or Fol: No Subjective No new complaints Abdominal pain has improved EGD findings reviewed with the patient NSAID related gastric ulcer Hemoglobin drifted down to below seven today and risks patient received one more unit PRBC vital signs Vital Sign Date Time Temp Pulse Resp B/P (MAP) Pulse Ox O2 Delivery O2 Flow Rate FiO2 11/18/24 20:55 98.1 98 20 141/83 (102) 99 98.1 11/18/24 08:00 Room Air* 0 21 Total Intake and Output 11/17/24 11/17/24 11/18/24 15:00 23:00 07:00 Intake Total 10 ml 100 ml 400 ml Balance 10 ml 100 ml 400 ml medications Current Medications Medications Dose Ordered Sig/Ami Route Start Time Stop Time Status Last Admin Dose Admin Sodium Chloride 10 ml Q8HR IV 11/14/24 22:00 11/18/24 14:00 10 ML Acetaminophen 650 mg Q6HP PRN PO 11/14/24 19:45 11/14/24 23:36 650 MG Ondansetron HCl 4 mg Q4HP PRN IV 11/14/24 19:45 11/18/24 18:14 4 MG Pantoprazole Sodium 40 mg BID IV 11/14/24 22:00 11/18/24 10:03 40 MG Morphine Sulfate 2 mg Q4HPRN PRN IV 11/14/24 20:30 11/16/24 17:58 2 MG Hydromorphone HCl 0.5 mg Q6HP PRN IV 11/15/24 12:30 11/18/24 20:30 0.5 MG Docusate Sodium 100 mg BIDPRN PO 11/15/24 22:00 11/18/24 10:03 100 MG Polyethylene Glycol 17 gm DAILY PO 11/16/24 10:00 11/18/24 10:03 17 GM Sucralfate 1 gm QID@0600,1130,1700,2200 PO 11/17/24 17:00 11/18/24 17:46 1 GM objective General-59 years old woman, well nourished well developed. No apparent distress HEENT-atraumatic normocephalic Heart-sinus tachycardic Lungs clear to auscultate bilaterally Abdomen soft nontender nondistended Musculoskeletal-no edema cyanosis Neuro-AO x3, no focal deficits laboratory and microbiology Laboratory Tests 11/18/24 05:11 Test 11/18/24 05:11 Range/Units Serum Glucose 74 74-106 mg/dL Problems(with codes): (1) Gastritis (2) Gastric ulcer (3) Abdominal pain (4) Anemia (5) Constipation Prognosis Plan Advance diet as tolerated PPI plus Carafate DC aspirin and NSAIDs Tylenol as needed for pain Last colonoscopy negative about five years ago Outpatient follow up with me in 2-4 weeks after discharge for ongoing management Dietary Evaluation Review Comments: 1) Encourage optimal PO intake 2) Advance to cardiac diet when medically feasible 3) Follow-up with gastroenterology and cardiology 4) Continue to monitor I&O, labs, and skin integrity Expected Outcomes/Goals: 1) appetite and labs to improve 2) diet to advance 3) f/u in 3-5 days Plan discussed with: Patient ROMIE NICOLE MD Nov 18, 2024 21:01
[2024-11-19 05:00] VITALS: BP 126/73; PULSE 93; RESP 18; TEMP 98.2; O2SAT 99
[2024-11-19 06:06] LABS: Hematocrit 22.1 % (36.0-46.0); Hemoglobin 7.5 g/dL (12.2-16.2); Mean Corpuscular Hemoglobin 28.0 pg (28.0-32.0); Mean Corpuscular Volume 82.6 fL (80.0-100.0); Nucleated Red Blood Cells % 0.3 %
[2024-11-19 06:27] LABS: Alanine Aminotransferase 34 U/L (7-40); Albumin 3.2 g/dL (3.2-4.8); Alkaline Phosphatase 58 U/L (46-116); Anion Gap 8 (5-15); BUN/Creatinine Ratio 10.3 (10.0-20.0); Carbon Dioxide 23 mmol/L (20-31); Glucose 78 mg/dL (74-106); Sodium 140 mmol/L (136-145)
[2024-11-19 06:28] LABS: Bilirubin, Total 0.3 mg/dL (0.2-1.0)
[2024-11-19 06:32] LABS: Blood Urea Nitrogen 6 mg/dL (9-23); Calcium 8.3 mg/dL (8.7-10.4); Chloride 109 mmol/L (98-107); Potassium 3.4 mmol/L (3.5-5.1); Total Protein 5.3 g/dL (5.7-8.2)
[2024-11-19 09:00] VITALS: BP 148/97; PULSE 93; RESP 16; TEMP 97.8; O2SAT 100
--- NOTE | 2024-11-19 11:22 | DVHPN2 ---
Reviewed: Care Plan, H&P, Labs, Medications, Previous Orders, Radiology Changes from previous H/P or p: No Changes Objective Vitals Vital Signs Date Time Temp Pulse Resp B/P (MAP) Pulse Ox O2 Delivery O2 Flow Rate FiO2 11/19/24 06:04 89 16 123/74 11/19/24 05:00 98.2 99 98.2 11/18/24 20:00 Room Air* 0 21 Intake/Output Intake and Output 11/19/24 07:00 Intake Total 3080 ml Balance 3080 ml Intake Oral 2480 ml Blood Product 300 ml Other 300 ml # Voids 4 # Bowel Movements 1 Medications Current Medications Medications Dose Ordered Sig/Ami Route Start Time Stop Time Status Last Admin Dose Admin Sodium Chloride 10 ml Q8HR IV 11/14/24 22:00 11/19/24 05:33 10 ML Acetaminophen 650 mg Q6HP PRN PO 11/14/24 19:45 11/14/24 23:36 650 MG Ondansetron HCl 4 mg Q4HP PRN IV 11/14/24 19:45 11/18/24 18:14 4 MG Pantoprazole Sodium 40 mg BID IV 11/14/24 22:00 11/19/24 09:11 40 MG Morphine Sulfate 2 mg Q4HPRN PRN IV 11/14/24 20:30 11/16/24 17:58 2 MG Hydromorphone HCl 0.5 mg Q6HP PRN IV 11/15/24 12:30 11/19/24 05:34 0.5 MG Docusate Sodium 100 mg BIDPRN PO 11/15/24 22:00 11/19/24 09:11 100 MG Polyethylene Glycol 17 gm DAILY PO 11/16/24 10:00 11/18/24 10:03 17 GM Sucralfate 1 gm QID@0600,1130,1700,2200 PO 11/17/24 17:00 11/19/24 05:33 1 GM Laboratory Results Laboratory Tests 11/19/24 05:18 Chemistry Test 11/19/24 05:18 Albumin 3.2 g/dL (3.2-4.8) Calcium Level 8.3 mg/dL (8.7-10.4) L Total Protein 5.3 g/dL (5.7-8.2) L LFT Test 11/19/24 05:18 Alanine Aminotransferase (ALT) 34 U/L (7-40) Alkaline Phosphatase 58 U/L (46-116) Aspartate Amino Transferase (AST) 61 U/L (13-40) H Total Bilirubin 0.3 mg/dL (0.2-1.0) Urinalysis Test 11/15/24 00:00 Urine Color Yellow (Yellow) Urine Clarity Clear (Clear) Urine pH 5.5 (5.0-9.0) Urine Specific [place] 1.026 (1.001-1.035) Urine Protein Negative (Negative) Urine Ketones Negative (Negative) Urine Blood Negative /uL (Negative) Urine Nitrite Negative (Negative) Urine Bilirubin Negative (Negative) Urine Urobilinogen Normal mg/dL (Negative) Urine Leukocyte Esterase Negative /uL (Negative) Urine Glucose Normal mg/dL (Normal) Labs and/or images reviewed: Labs reviewed by me, Image(s) reviewed by me Assessment/Plan Assessment/Plan Acute generalized weakness secondary to severe anemia Acute symptomatic anemia hemoglobin 6.1 improved to 7.5 after 2 units RBC transfusion , down to 6.7, EGD by Dr. Deya Anderson on 11/17/2024: 1. Patient had a 2 cm deep pre-pyloric antral gastric ulcer at the 9 o'clock position Bharath classification C with no visible vessel or bleeding 2. Mild gastroduodenitis with duodenal erosions; no fresh or old blood in the GI tract Hypertension Nonspecific colitis and constipation seen by GI Dr. Deya Garrido at bedside Time 45 minutes Plan discussed with: Patient Date of Service: Nov 19, 2024 Billing Provider: DEN VALE MD Common Visit Codes: [id number] INP/OBS CARE(HIGH) DEN VALE MD Nov 19, 2024 11:22
[2024-11-19 13:00] VITALS: BP 140/79; PULSE 86; RESP 77; TEMP 98.5; O2SAT 99
[2024-11-19 17:00] VITALS: BP 144/86; PULSE 101; RESP 16; TEMP 97.9; O2SAT 100
--- NOTE | 2024-11-19 17:06 | DVHPN2 ---
Progress Note - Dictate Date Seen: Nov 19, 2024 Medical Necessity Reason Pt with a Central, PICC or Fol: No Subjective No new complaints Abdominal pain has improved EGD findings reviewed with the patient NSAID related gastric ulcer Repeat hemoglobin 7.5 S/P 2 units PRBC vital signs Vital Sign Date Time Temp Pulse Resp B/P (MAP) Pulse Ox O2 Delivery O2 Flow Rate FiO2 11/19/24 13:00 98.5 86 77 140/79 (99) 99 98.5 11/19/24 08:00 Room Air* 0 21 Total Intake and Output 11/18/24 11/18/24 11/19/24 14:59 22:59 06:59 Intake Total 600 ml 1680 ml 800 ml Balance 600 ml 1680 ml 800 ml medications Current Medications Medications Dose Ordered Sig/Ami Route Start Time Stop Time Status Last Admin Dose Admin Sodium Chloride 10 ml Q8HR IV 11/14/24 22:00 11/19/24 12:05 10 ML Acetaminophen 650 mg Q6HP PRN PO 11/14/24 19:45 11/14/24 23:36 650 MG Ondansetron HCl 4 mg Q4HP PRN IV 11/14/24 19:45 11/18/24 18:14 4 MG Pantoprazole Sodium 40 mg BID IV 11/14/24 22:00 11/19/24 09:11 40 MG Morphine Sulfate 2 mg Q4HPRN PRN IV 11/14/24 20:30 11/16/24 17:58 2 MG Hydromorphone HCl 0.5 mg Q6HP PRN IV 11/15/24 12:30 11/19/24 05:34 0.5 MG Docusate Sodium 100 mg BIDPRN PO 11/15/24 22:00 11/19/24 09:11 100 MG Polyethylene Glycol 17 gm DAILY PO 11/16/24 10:00 11/18/24 10:03 17 GM Sucralfate 1 gm QID@0600,1130,1700,2200 PO 11/17/24 17:00 11/19/24 12:05 1 GM objective General-59 years old woman, well nourished well developed. No apparent distress HEENT-atraumatic normocephalic Heart-sinus tachycardic Lungs clear to auscultate bilaterally Abdomen soft nontender nondistended Musculoskeletal-no edema cyanosis Neuro-AO x3, no focal deficits laboratory and microbiology Laboratory Tests 11/19/24 05:18 Test 11/19/24 05:18 Range/Units Serum Glucose 78 74-106 mg/dL Problems(with codes): (1) Gastritis (2) Gastric ulcer (3) Abdominal pain (4) Anemia (5) Constipation Prognosis Plan Advance diet as tolerated PPI plus Carafate DC aspirin and NSAIDs Tylenol as needed for pain Last colonoscopy negative about five years ago Outpatient follow up with me in 2-4 weeks after discharge for ongoing management Dietary Evaluation Review Comments: 1) Encourage optimal PO intake 2) Advance to cardiac diet when medically feasible 3) Follow-up with gastroenterology and cardiology 4) Continue to monitor I&O, labs, and skin integrity Expected Outcomes/Goals: 1) appetite and labs to improve 2) diet to advance 3) f/u in 3-5 days Plan discussed with: Patient ROMIE NICOLE MD Nov 19, 2024 17:05
[2024-11-19 21:00] VITALS: BP 120/78; PULSE 90; RESP 20; TEMP 98.3; O2SAT 100
[2024-11-20 01:00] VITALS: BP 133/87; PULSE 94; RESP 18; TEMP 98.2; O2SAT 99
[2024-11-20 05:00] VITALS: BP 143/91; PULSE 84; RESP 18; TEMP 97.5; O2SAT 97
[2024-11-20 09:00] VITALS: BP 141/90; PULSE 86; RESP 20; TEMP 98.2; O2SAT 99
--- NOTE | 2024-11-20 10:54 | DVHPN2 ---
Reviewed: Care Plan, H&P, Labs, Medications, Previous Orders, Radiology Changes from previous H/P or p: No Changes Objective Vitals Vital Signs Date Time Temp Pulse Resp B/P (MAP) Pulse Ox O2 Delivery O2 Flow Rate FiO2 11/20/24 10:18 92 16 149/93 11/20/24 09:00 98.2 99 98.2 11/19/24 20:00 Room Air* 0 21 Intake/Output Intake and Output 11/20/24 07:00 Intake Total 1480 ml Balance 1480 ml Intake Oral 1480 ml # Voids 6 Medications Current Medications Medications Dose Ordered Sig/Ami Route Start Time Stop Time Status Last Admin Dose Admin Sodium Chloride 10 ml Q8HR IV 11/14/24 22:00 11/20/24 10:15 10 ML Acetaminophen 650 mg Q6HP PRN PO 11/14/24 19:45 11/14/24 23:36 650 MG Ondansetron HCl 4 mg Q4HP PRN IV 11/14/24 19:45 11/18/24 18:14 4 MG Pantoprazole Sodium 40 mg BID IV 11/14/24 22:00 11/20/24 10:14 40 MG Morphine Sulfate 2 mg Q4HPRN PRN IV 11/14/24 20:30 11/20/24 10:18 2 MG Hydromorphone HCl 0.5 mg Q6HP PRN IV 11/15/24 12:30 11/20/24 05:14 0.5 MG Docusate Sodium 100 mg BIDPRN PO 11/15/24 22:00 11/20/24 10:14 100 MG Polyethylene Glycol 17 gm DAILY PO 11/16/24 10:00 11/20/24 10:14 17 GM Sucralfate 1 gm QID@0600,1130,1700,2200 PO 11/17/24 17:00 11/20/24 10:15 1 GM Laboratory Results Laboratory Tests 11/19/24 05:18 Urinalysis Test 11/15/24 00:00 Urine Color Yellow (Yellow) Urine Clarity Clear (Clear) Urine pH 5.5 (5.0-9.0) Urine Specific [place] 1.026 (1.001-1.035) Urine Protein Negative (Negative) Urine Ketones Negative (Negative) Urine Blood Negative /uL (Negative) Urine Nitrite Negative (Negative) Urine Bilirubin Negative (Negative) Urine Urobilinogen Normal mg/dL (Negative) Urine Leukocyte Esterase Negative /uL (Negative) Urine Glucose Normal mg/dL (Normal) Labs and/or images reviewed: Labs reviewed by me, Image(s) reviewed by me Assessment/Plan Assessment/Plan Acute generalized weakness secondary to severe anemia Acute symptomatic anemia hemoglobin 6.1 improved to 7.5 after 2 units RBC transfusion , down to 6.7, EGD by Dr. Deya Anderson on 11/17/2024: 1. Patient had a 2 cm deep pre-pyloric antral gastric ulcer at the 9 o'clock position Bharath classification C with no visible vessel or bleeding 2. Mild gastroduodenitis with duodenal erosions; no fresh or old blood in the GI tract Hypertension Nonspecific colitis and constipation seen by GI Dr. Deya Anderson Patient is still complaining of constipation and does not want to be discharged: MirCornell Banda at bedside Time 45 minutes May discharge home on 11/21/2024, Dr. Deya Anderson cleared for discharge Plan discussed with: Patient Date of Service: Nov 20, 2024 Billing Provider: DEN VALE MD Common Visit Codes: [id number] INP/OBS CARE(HIGH) DEN VALE MD Nov 20, 2024 10:54
[2024-11-20 12:49] VITALS: BP 138/86; PULSE 81; RESP 18; TEMP 98.1; O2SAT 98
[2024-11-20 16:53] VITALS: BP 142/89; PULSE 82; RESP 18; TEMP 98.2; O2SAT 100
[2024-11-20 21:00] VITALS: BP 140/84; PULSE 84; RESP 12; TEMP 98.4; O2SAT 98
--- NOTE | 2024-11-20 21:39 | DVHPN2 ---
Progress Note - Dictate Date Seen: Nov 20, 2024 Medical Necessity Reason Pt with a Central, PICC or Fol: No Subjective No new complaints Abdominal pain has improved EGD findings reviewed with the patient NSAID related gastric ulcer Repeat hemoglobin 7.5 S/P 2 units PRBC vital signs Vital Sign Date Time Temp Pulse Resp B/P (MAP) Pulse Ox O2 Delivery O2 Flow Rate FiO2 11/20/24 21:05 84 12 140/84 11/20/24 21:00 98.4 98 98.4 11/20/24 08:30 Room Air* 0 21 Total Intake and Output 11/19/24 11/19/24 11/20/24 15:00 23:00 07:00 Intake Total 1080 ml 400 ml Balance 1080 ml 400 ml medications Current Medications Medications Dose Ordered Sig/Ami Route Start Time Stop Time Status Last Admin Dose Admin Sodium Chloride 10 ml Q8HR IV 11/14/24 22:00 11/20/24 21:03 10 ML Acetaminophen 650 mg Q6HP PRN PO 11/14/24 19:45 11/14/24 23:36 650 MG Ondansetron HCl 4 mg Q4HP PRN IV 11/14/24 19:45 11/18/24 18:14 4 MG Pantoprazole Sodium 40 mg BID IV 11/14/24 22:00 11/20/24 21:04 40 MG Morphine Sulfate 2 mg Q4HPRN PRN IV 11/14/24 20:30 11/20/24 10:18 2 MG Hydromorphone HCl 0.5 mg Q6HP PRN IV 11/15/24 12:30 11/20/24 21:05 0.5 MG Docusate Sodium 100 mg BIDPRN PO 11/15/24 22:00 11/20/24 21:05 100 MG Polyethylene Glycol 17 gm DAILY PO 11/16/24 10:00 11/20/24 10:14 17 GM Sucralfate 1 gm QID@0600,1130,1700,2200 PO 11/17/24 17:00 11/20/24 21:11 1 GM objective General-59 years old woman, well nourished well developed. No apparent distress HEENT-atraumatic normocephalic Heart-sinus tachycardic Lungs clear to auscultate bilaterally Abdomen soft nontender nondistended Musculoskeletal-no edema cyanosis Neuro-AO x3, no focal deficits laboratory and microbiology Laboratory Tests 11/19/24 05:18 Test 11/19/24 05:18 Range/Units Serum Glucose 78 74-106 mg/dL Problems(with codes): (1) Gastritis (2) Gastric ulcer (3) Abdominal pain (4) Anemia (5) Constipation (6) Nonspecific colitis Prognosis Plan Continue Protonix and sucralfate Check repeat CBC in a.m. Patient has had 2 units PRBC IV iron infusion Discharge planning as per hospitalist Outpatient follow up with me for elective colonoscopy, last examination was five years [facility] which she reports as negative Dietary Evaluation Review Comments: 1) Encourage optimal PO intake 2) Advance to cardiac diet when medically feasible 3) Follow-up with gastroenterology and cardiology 4) Continue to monitor I&O, labs, and skin integrity Expected Outcomes/Goals: 1) appetite and labs to improve 2) diet to advance 3) f/u in 3-5 days Plan discussed with: Patient, Other (Dr Kari Coleman) ROMIE NICOLE MD Nov 20, 2024 21:39
[2024-11-21 01:00] VITALS: BP 138/81; PULSE 78; RESP 14; TEMP 98.2; O2SAT 99
[2024-11-21 05:00] VITALS: BP 117/44; PULSE 94; RESP 16; TEMP 98.5; O2SAT 99
[2024-11-21 06:18] LABS: Hematocrit 25.5 % (36.0-46.0); Hemoglobin 8.6 g/dL (12.2-16.2); Mean Corpuscular Hemoglobin 27.5 pg (28.0-32.0); Mean Corpuscular Volume 82.0 fL (80.0-100.0); Nucleated Red Blood Cells % 0.1 %
[2024-11-21 09:00] VITALS: BP 125/85; PULSE 105; RESP 20; TEMP 98; O2SAT 99
[2024-11-21 13:00] VITALS: BP 149/92; PULSE 90; RESP 20; TEMP 98.3; O2SAT 99
[2024-11-21] MEDS: IRON SUCROSE COMPLEX 110 ML IV SCH (13:10)
[2024-11-21] MEDS: HYDROcodone-ACET 10/325MG TAB PO PRN (13:18)
[2024-11-21] MEDS ORDERED: PANT40TA2 PO (14:03)
[2024-11-21] MEDS ORDERED: SUCR1TAB PO (14:03)
[2024-11-21] MEDS ORDERED: FER325T PO (14:03)
[2024-11-21] MEDS ORDERED: HYDR-4902 PO (14:03)
--- NOTE | 2024-11-21 14:07 | DVHDS2 ---
Discharge Summary Date of Admission Nov 14, 2024 at 19:45 Date of Discharge: Nov 21, 2024 Admitting Diagnosis Anemia Labs/Diagnostic Data: Laboratory Results Test 11/21/24 05:35 11/19/24 05:18 11/15/24 10:25 11/15/24 00:00 White Blood Count 4.6 10^3/uL (4.4-10.8) Red Blood Count 3.11 10^6/uL (4.0-5.20) Hemoglobin 8.6 g/dL (12.2-16.2) Hematocrit 25.5 % (36.0-46.0) Mean Corpuscular Volume 82.0 fL (80.0-100.0) Mean Corpuscular Hemoglobin 27.5 pg (28.0-32.0) Mean Corpuscular Hemoglobin Concent 33.6 g/dL (32.0-36.0) Red Cell Distribution Width 17.6 % (11.8-14.3) Platelet Count 673 10^3/uL (140-450) Mean Platelet Volume 7.4 fL (6.9-10.8) Neutrophils (%) (Auto) 57.2 % (37.0-80.0) Lymphocytes (%) (Auto) 24.3 % (10.0-50.0) Monocytes (%) (Auto) 15.7 % (0.0-12.0) Eosinophils (%) (Auto) 1.8 % (0.0-7.0) Basophils (%) (Auto) 1.0 % (0.0-2.0) Neutrophils # (Auto) 2.6 10 ^3/uL (1.6-8.6) Lymphocytes # (Auto) 1.1 10 ^3/uL (0.4-5.4) Monocytes # (Auto) 0.7 10 ^3/uL (0-1.3) Eosinophils # (Auto) 0.1 10 ^3/uL (0-0.8) Basophils # (Auto) 0 10 ^3/uL (0-0.2) Nucleated Red Blood Cells 0.1 % Sodium Level 140 mmol/L (136-145) Potassium Level 3.4 mmol/L (3.5-5.1) Chloride Level 109 mmol/L (98-107) Carbon Dioxide Level 23 mmol/L (20-31) Anion Gap 8 (5-15) Blood Urea Nitrogen 6 mg/dL (9-23) Creatinine 0.58 mg/dL (0.550-1.02) Glomerular Filtration Rate Calc 103 mL/min (>90) BUN/Creatinine Ratio 10.3 (10.0-20.0) Serum Glucose 78 mg/dL (74-106) Calcium Level 8.3 mg/dL (8.7-10.4) Total Bilirubin 0.3 mg/dL (0.2-1.0) Aspartate Amino Transferase (AST) 61 U/L (13-40) Alanine Aminotransferase (ALT) 34 U/L (7-40) Alkaline Phosphatase 58 U/L (46-116) Total Protein 5.3 g/dL (5.7-8.2) Albumin 3.2 g/dL (3.2-4.8) Differential Total Cells Counted 100.0 (100) Neutrophils % (Manual) 80 (37.0-80.0) Band Neutrophils % (Manual) 7 Lymphocytes % (Manual) 10 (10.0-50.0) Monocytes % (Manual) 3 (0-12) Eosinophils % (Manual) 0 (0-7) Basophils % (Manual) 0 (0.0-2.0) Metamyelocytes % (manual) 0 Myelocytes % (Manual) 0 Promyelocytes % (Manual) 0 Blast Cells % (Manual) 0 Reactive Lymphocytes 0 Platelet Estimate Adequate Urine Color Yellow (Yellow) Urine Clarity Clear (Clear) Urine pH 5.5 (5.0-9.0) Urine Specific [place] 1.026 (1.001-1.035) Urine Protein Negative (Negative) Urine Ketones Negative (Negative) Urine Blood Negative /uL (Negative) Urine Nitrite Negative (Negative) Urine Bilirubin Negative (Negative) Urine Urobilinogen Normal mg/dL (Negative) Urine Leukocyte Esterase Negative /uL (Negative) Urine Glucose Normal mg/dL (Normal) Other Laboratory Tests 11/21/24 05:35 11/19/24 05:18 Brief Hx & Hospital Course: 59 year old female past medical history of hypotension, , presents to the ED via EMS with a chief complaint of generalized weakness onset 1 day. Per EMS, patient was at an urgent care, was told hemoglobin level was 5, ems was called. Patient is currently experiencing generalized weakness, abdominal pain radiating to back. She was discharged from [facility] 3 days ago with a diagnosis of GI bleed, states she is still experiencing dark stool. PMHx HTN. Denies chest pain, dizziness, shortness of breath, nausea, vomiting, diarrhea, constipation, dysuria, hematuria. No other symptoms or modifying factors present at this time. Patient presented with severe anemia and she has had prior episodes. GI was consulted and EGD was done showing deep pre-pyloric antral gastric ulcer, mild gastroduodenitis with duodenal erosions no fresh blood, and 2 cm sliding type hiatal hernia with no erosive esophagitis, otherwise normal exam up to 2nd part of duodenum.. See the full report and operative report. Cleared by GI plan for outpatient follow up, plan to discharge patient with Protonix and Carafate and Zofran PRN. Patient is stable for discharge as per plan below. Diagnosis: Acute blood loss anemia, due to below Severe anemia requiring blood transfusion, due to below Hypokalemia, repleted Tachycardia, likely due to above, resolved Intravascular volume depletion Leukocytosis, likely reactive Sliding hiatal hernia Gastritis Gastric ulcer PUD Abdominal pain Anemia Constipation Nonspecific colitis Discharge plan: Do not take any NSAIDs (ibuprofen, Motrin, Aleve) Avoid spicy food, caffeine, Take Protonix daily, Carafate twice daily We will repeat hemoglobin level with discharge clinic on Sunday11/25/2024 Follow up with GI Dr. Anderson for outpatient workup and possible colonoscopy. Condition at Discharge: Fair Final Diagnosis/Problems List Acute blood loss anemia, due to below Severe anemia requiring blood transfusion, due to below Hypokalemia, repleted Tachycardia, likely due to above, resolved Intravascular volume depletion Leukocytosis, likely reactive Sliding hiatal hernia Gastritis Gastric ulcer PUD Abdominal pain Anemia Constipation Nonspecific colitis Discharge Disposition: Home Discharge Instruct/Medications Diet: Cardiac 2g Na,low cholest Activity: No Restrictions, As Tolerated Scheduled Atorvastatin Calcium (Atorvastatin Calcium), 1 TAB PO DAILY, (Reported) Cetirizine HCl (Cetirizine Hydrochloride), 10 MG PO 3XD, (Reported) Diphenhydramine Hcl (Benadryl Allergy), 1 CAP PO QPM, (Reported) Docusate Sodium (Colace), 1 CAP PO TID, (Reported) Enalapril Maleate (Vasotec Tablet), 1 TAB PO DAILY, (Reported) Ferrous Sulfate (Ferrous Sulfate), 325 MG PO EOD Ibuprofen Micronized (Motrin Tablet), 600 MG PO BID, (Reported) Metoprolol Succinate (Metoprolol Succinate Er), 1 TAB PO DAILY, (Reported) Pantoprazole Sodium Sesquihydr (Protonix), 40 MG PO DAILY Sucralfate (Sucralfate), 1 GM PO BID Scheduled PRN Hydrocodone-Acetaminophen (Hydrocodone Bitartrate/AC 5-325 mg), 1 TAB PO TIDP PRN Miscellaneous Medications Acetaminophen (Tylenol Extra Strength), 500 MG PO, (Reported) Albuterol Sulfate (Ventolin Mdi), 90 MCG IN, (Reported) Discharge Statement: "Patient was advised to return to the ER or call 911 if any headaches, dizziness, shortness of breath, chest pain, abdominal pain, bleeding, fevers, or worsening of medical condition. Patient was counseled about treatment plan, medications, possible side effects, patientverbalized understanding. All questions were answered to the best of my ability. This discharge took greater then 30 minutes in planning, reviewing documentation, counseling the patient, and discussing with other team members." Date of Service: Nov 21, 2024 Billing Provider: TYRESE THOMAS MD Common Visit Codes: [id number] DISCH DAY >30min TYRESE THOMAS MD Nov 21, 2024 14:07
[2024-11-21 14:10] VITALS: BP 149/92; PULSE 90; RESP 20; TEMP 98.3; O2SAT 99
--- NOTE | 2024-11-21 20:40 | DVHPN2 ---
Progress Note - Dictate Date Seen: Nov 21, 2024 (Late entryPatient seen at 9:00 a.m.) Medical Necessity Reason Pt with a Central, PICC or Fol: No Subjective No new complaints Abdominal pain has improved EGD findings reviewed with the patient NSAID related gastric ulcer Repeat hemoglobin 8.6 S/P 2 units PRBC vital signs Vital Sign Date Time Temp Pulse Resp B/P (MAP) Pulse Ox O2 Delivery O2 Flow Rate FiO2 11/21/24 14:10 98.3 90 20 99 11/21/24 13:00 149/92 (111) 11/21/24 08:00 Room Air* 0 21 Total Intake and Output 11/20/24 11/20/24 11/21/24 14:59 22:59 06:59 Intake Total 480 ml 400 ml Balance 480 ml 400 ml objective General-59 years old woman, well nourished well developed. No apparent distress HEENT-atraumatic normocephalic Heart-sinus tachycardic Lungs clear to auscultate bilaterally Abdomen soft nontender nondistended Musculoskeletal-no edema cyanosis Neuro-AO x3, no focal deficits laboratory and microbiology Laboratory Tests 11/21/24 05:35 11/19/24 05:18 Test 11/19/24 05:18 Range/Units Serum Glucose 78 74-106 mg/dL Problems(with codes): (1) Gastritis (2) Gastric ulcer (3) Abdominal pain (4) Anemia Prognosis Plan Discharge planning as per hospitalist Continue PPI and Carafate Discontinue aspirin NSAIDs smoking alcohol Outpatient follow up in my office in 4-6 weeks Dietary Evaluation Review Comments: 1) Encourage optimal PO intake 2) Advance to cardiac diet when medically feasible 3) Follow-up with gastroenterology and cardiology 4) Continue to monitor I&O, labs, and skin integrity Expected Outcomes/Goals: 1) appetite and labs to improve 2) diet to advance 3) f/u in 3-5 days Plan discussed with: Patient ROMIE NICOLE MD Nov 21, 2024 20:40
== END 2024-11-21 15:00 | disposition home or self-care (01) | DRG 241 ==
LOC: ER 16:11 → EDBD 16:11 → EDUNIT# 16:11 → OVERFLOW 19:45 → EAST 11-15 03:02
PROVIDERS: ADMIT Family Medicine; ATTEND Family Medicine
PROC: 30233N1 Transfusion of Nonautologous Red Blood Cells into Peripheral Vein, Percutaneous Approach (ICD-10-PCS; principal; 2024-11-14)
PROC: 0DB98ZX Excision of Duodenum, Via Natural or Artificial Opening Endoscopic, Diagnostic (ICD-10-PCS; 2024-11-17)
PROC: 0DB68ZX Excision of Stomach, Via Natural or Artificial Opening Endoscopic, Diagnostic (ICD-10-PCS; 2024-11-17)
DX: K29.71 Gastritis, unspecified, with bleeding (principal); D62 Acute posthemorrhagic anemia; K25.4 Chronic or unspecified gastric ulcer with hemorrhage; I10 Essential (primary) hypertension; K26.4 Chronic or unspecified duodenal ulcer with hemorrhage; E86.9 Volume depletion, unspecified; F17.210 Nicotine dependence, cigarettes, uncomplicated; K44.9 Diaphragmatic hernia without obstruction or gangrene; K52.9 Noninfective gastroenteritis and colitis, unspecified; K29.90 Gastroduodenitis, unspecified, without bleeding; K59.00 Constipation, unspecified; E87.6 Hypokalemia; G89.29 Other chronic pain; Z82.49 Family history of ischemic heart disease and other diseases of the circulatory system
CPT/HCPCS: 36415; 43239; 74176; 80048; 80053; 81003; 85007; 85025; 85027; 86850; 86900; 86901; 86920; 93005; 96361; 96374; 96375; G0378; J1756; J1885; J2250; J2405; J2470